=== PATIENT | female | born 1990 | race Caucasian/White ===

== ENCOUNTER 2017-02-04 23:09 | Emergency (ER) | payer SELFPAY ==
[2017-02-05] MEDS ORDERED: ASPIRIN 81 MG TABLET, CHEWABLE PO ONE (00:06)
[2017-02-05 00:55] LABS: HEMATOCRIT 42.9 % (36.0-47.0); HEMOGLOBIN 14.3 g/dL (12.0-15.5); MEAN CORPUSCULAR HEMOGLOBIN 30.6 pg (27.0-33.4); MEAN CORPUSCULAR HGB CONC 33.3 g/dL (32.0-36.0); MEAN CORPUSCULAR VOLUME 92 fl (80-97); RED BLOOD COUNT 4.67 10^6/uL (3.72-5.28); RED CELL DISTRIBUTION WIDTH 12.6 % (11.5-14.0); WHITE BLOOD COUNT 21.3 10^3/uL (4.0-10.5)
[2017-02-05 01:11] LABS: ALANINE AMINOTRANSFERASE 83 U/L (9-52); ALBUMIN 4.5 g/dL (3.5-5.0); ALKALINE PHOSPHATASE 93 U/L (38-126); ANION GAP 11 (5-19); ASPARTATE AMINO TRANSFERASE 171 U/L (14-36); BILIRUBIN,DIRECT 0.4 mg/dL (0.0-0.4); BILIRUBIN,TOTAL 0.6 mg/dL (0.2-1.3); BLOOD UREA NITROGEN 15 mg/dL (7-20); CARBON DIOXIDE 24 mmol/L (22-30); CHLORIDE 105 mmol/L (98-107); CREATINE KINASE 66 U/L (30-135); CREATININE RESULT 0.82 mg/dL (0.52-1.25); GLUCOSE 103 mg/dL (75-110); POTASSIUM 4.2 mmol/L (3.6-5.0); SODIUM 139.5 mmol/L (137-145); TOTAL PROTEIN 7.6 g/dL (6.3-8.2)
[2017-02-05 01:19] LABS: BAND NEUTROPHILS % (MANUAL) 3 % (3-5); BASOPHILS % (MANUAL) 0 % (0-2); EOSINOPHILS % (MANUAL) 0 % (0-6); LYMPHOCYTES % (MANUAL) 7 % (13-45); TOTAL CELLS COUNTED 100
[2017-02-05 01:20] LABS: RBC MORPHOLOGY COMMENT NORMO-CYTIC/CHROMIC; TOXIC GRANULATION 1+
[2017-02-05 01:21] LABS: CREATINE KINASE MB < 0.22 ng/mL (<4.55); TROPONIN I < 0.012 ng/mL
--- NOTE | 2017-02-05 01:22 | RADIOLOGY REPORT (SQ) ---
EXAM DESCRIPTION: CHEST PA/LAT COMPLETED DATE/TIME: 02/05/2017 12:55 am REASON FOR STUDY: chest pain COMPARISON: None. EXAM PARAMETERS: NUMBER OF VIEWS: two views TECHNIQUE: Digital Frontal and Lateral radiographic views of the chest acquired. RADIATION DOSE: NA LIMITATIONS: none FINDINGS: LUNGS AND PLEURA: No opacities, masses or pneumothorax. No pleural effusion. Moderate hyp erinflation. MEDIASTINUM AND HILAR STRUCTURES: No masses or contour abnormalities. HEART AND VASCULAR STRUCTURES: Heart normal size. No evidence for failure. BONES: No acute findings. HARDWARE: None in the chest. OTHER: No other significant finding. IMPRESSION: NO SIGNIFICANT RADIOGRAPHIC FINDING IN THE CHEST. TECHNICAL DOCUMENTATION: JOB ID: [id number] [employer]- All Rights Reserved
[2017-02-05] MEDS ORDERED: ONDANSETRON 4 MG TAB.RAPDIS PO ONE (02:30)
--- NOTE | 2017-02-05 02:32 | ER Document Report ---
ED General - General Chief Complaint: Chest Pain Stated Complaint: CHEST PRESSURE/VOMITING Time Seen by Provider: 02/05/17 02:22 Notes: Patient is a 26-year-old female that comes emergency department for chief complaint of vomiting and pain on both of her sides starting just below the ribs and radiating upwards. She states that she has vomited twice. She denies any current pain, she states that nausea comes in waves. LMP within the past 4 months. She denies cough, shortness of breath, sore throat, headache, abdominal pain, flank pain, chest pain. She denies any fevers or chills. She denies any dysuria, vaginal discharge or bleeding. She denies any daily medications, denies any surgeries. TRAVEL OUTSIDE OF THE [place] IN LAST 30 DAYS: No Past Medical History - General Information source: Patient - Social History Smoking Status: Never Smoker Frequency of alcohol use: Occasional Drug Abuse: None Lives with: Family Family History: Reviewed & Not Pertinent Patient has suicidal ideation: No Patient has homicidal ideation: No - Medical History Medical History: Negative Renal/ Medical History: Denies: Hx Peritoneal Dialysis Surgical Hx: Negative - Immunizations Immunizations up to date: Yes Hx Diphtheria, Pertussis, Tetanus Vaccination: Yes Review of Systems - Review of Systems Constitutional: No symptoms reported EENT: No symptoms reported Cardiovascular: No symptoms reported Respiratory: No symptoms reported Gastrointestinal: See HPI Genitourinary: No symptoms reported Female Genitourinary: No symptoms reported Musculoskeletal: No symptoms reported Skin: No symptoms reported Hematologic/Lymphatic: No symptoms reported Neurological/Psychological: No symptoms reported Physical Exam - Vital signs Vitals: Temp Pulse Resp BP Pulse Ox 96.5 F L 68 20 105/57 L 100 02/04/17 23:26 02/04/17 23:26 02/04/17 23:26 02/04/17 23:26 02/04/17 23:26 Interpretation: Normal - General General appearance: Appears well In distress: None - HEENT Head: Normocephalic, Atraumatic Eyes: Normal Conjunctiva: Normal Extraocular movements intact: Yes Eyelashes: Normal Pupils: PERRL Ears: Normal External canal: Normal Tympanic membrane: Normal Sinus: Normal Nasal: Normal Mouth/Lips: Normal Mucous membranes: Dry Pharynx: Normal Neck: Normal. No: Anterior cervical chain, Posterior cervical chain, Meningismus - Full neck range of motion with no rigidity - Respiratory Respiratory status: No respiratory distress. No: Labored, Tachypnea Chest status: Nontender Breath sounds: Normal. No: Decreased air movement, Wheezing Chest palpation: Normal - Cardiovascular Rhythm: Regular Heart sounds: Normal auscultation Murmur: No - Abdominal Inspection: Normal Distension: No distension Bowel sounds: Normal Tenderness: Nontender. No: Tender, Guarding - Completely benign abdomen, soft, no rigidity, no guarding Organomegaly: No organomegaly - Back Back: Normal. No: Tender, CVA tenderness - Extremities General upper extremity: Normal inspection, Nontender, Normal color, Normal ROM , Normal temperature General lower extremity: Normal inspection, Nontender, Normal color, Normal ROM , Normal temperature, Normal weight bearing. No: Geovanna's sign - Neurological Neuro grossly intact: Yes Cognition: Normal Orientation: AAOx4 Paige Coma Scale Eye Opening: Spontaneous Paige Coma Scale Verbal: Oriented Paige Coma Scale Motor: Obeys Commands [place] Coma Scale Total: 15 Speech: Normal Motor strength normal: LUE, RUE, LLE, RLE Sensory: Normal - Psychological Associated symptoms: Normal affect, Normal mood - Skin Skin Temperature: Warm Skin Moisture: Dry Skin Color: Normal Course - Re-evaluation Re-evalutation: Leukocytosis at 21,000 with elevation of neutrophils, no bandemia, slightly low temperature, no tachycardia, borderline blood pressure. Patient is very small in size. AST slightly elevated greater than ALT, nonspecific with completely nontender abdominal exam. Despite leukocytosis patient is actually extremely well-appearing, smiling, talkative, denying any pain, had no symptoms whatsoever after Zofran was given. I do not appreciate any CVA tenderness, clear lungs, normal throat, no nuchal rigidity, no headache complaint. Urinalysis showing positive nitrates, 3+ bacteria, white blood cells. Urine culture placed. Patient placed on Keflex, given Zofran. This does match with patient's "side pain" which she demonstrates to me as lateral abdominal pain towards the flank. Suspect this is from a urinary tract infection, there is no evidence of acute abdominal abnormality on examination, chest x-ray normal with normal lung auscultation. Patient does not have any chest pain. Patient states satisfaction with treatment, discussed close follow-up, discussed return precautions in detail, patient and state understanding and agreement. Patient asymptomatic at discharge - Vital Signs Vital signs: Temp Pulse Resp BP Pulse Ox 98.5 F 73 20 104/57 L 98 02/05/17 03:26 02/05/17 03:26 02/04/17 23:26 02/05/17 03:26 02/05/17 03:26 - Laboratory Result Diagrams: 02/05/17 00:38 02/05/17 00:38 Laboratory results interpreted by me: 02/05/17 02/05/17 02/05/17 00:38 00:38 02:45 WBC 21.3 H Seg Neuts % (Manual) 83 H Lymphocytes % (Manual) 7 L Abs Neuts (Manual) 18.3 H AST 171 H ALT 83 H Urine Nitrite POSITIVE H Urine Urobilinogen 4.0 H Ur Leukocyte Esterase TRACE H Discharge - Discharge Clinical Impression: Side pain Vomiting Qualifiers: Vomiting type: unspecified Vomiting Intractability: non-intractable Nausea presence: with nausea Qualified Code(s): R11.2 - Nausea with vomiting, unspecified Urinary tract infection Qualifiers: Urinary tract infection type: site unspecified Hematuria presence: without hematuria Qualified Code(s): N39.0 - Urinary tract infection, site not specified Condition: Stable Disposition: HOME, SELF-CARE Additional Instructions: Your workup indicates a urinary tract infection. Take the Keflex antibiotics as directed, we have a urine culture growing in our lab. Take the Zofran if needed for nausea. Your liver function tests were slightly elevated, these need to be routinely rechecked with primary care provider. Return to emergency department immediately if you worsen including uncontrolled vomiting, fever, developing pain in the abdomen or back, or any other concerning symptoms. Prescriptions: Cephalexin Monohydrate [Keflex 500 mg Capsule] 500 mg PO BID #14 capsule Ondansetron [Zofran Odt 4 mg Tablet] 1 - 2 tab PO Q4H PRN #20 tab.rapdis PRN Reason: For Nausea/Vomiting
[2017-02-05 03:06] LABS: APPEARANCE,URINE SLIGHTLY-CLOUDY; BILIRUBIN,URINE NEGATIVE (NEGATIVE); GLUCOSE, URINE NEGATIVE (NEGATIVE); KETONES,URINE NEGATIVE (NEGATIVE); LEUKOCYTE ESTERASE,URINE TRACE (NEGATIVE); NITRITE,URINE POSITIVE (NEGATIVE); PROTEIN,URINE NEGATIVE (NEGATIVE); URINE SPECIFIC GRAVITY 1.025
[2017-02-05] MEDS ORDERED: CEPHALEXIN 500 MG CAPSULE PO ONE (03:22)
[2017-02-05] MEDS ORDERED: ONDANSETRON ODT 4 MG TAB (6 TAB/DSPK) PO PRN (03:22)
[2017-02-05 03:28] VITALS: BP 104/57
--- NOTE | 2017-02-05 13:46 | EKG REPORT ---
SEVERITY:- NORMAL ECG - SINUS RHYTHM : Confirmed by: Deja Tiwari 05-Feb-2017 13:45:15
== END 2017-02-05 03:54 | disposition home or self-care (01) ==
LOC: ER 23:09
DX: N39.0 Urinary tract infection, site not specified (principal); R11.2 Nausea with vomiting, unspecified; D72.828 Other elevated white blood cell count
CPT/HCPCS: 93005; 99285; 36415; 87086; 82553; 82550; 85025; 87088; 80053; 81001; 84484; 87186; 71020; 93010; S0119

== ENCOUNTER 2017-02-21 16:52 | Emergency (ER) | payer SELFPAY ==
[2017-02-21 17:14] VITALS: BP 146/84
[2017-02-21] MEDS ORDERED: ONDANSETRON 4 MG TAB.RAPDIS PO ONE (19:02)
--- NOTE | 2017-02-21 19:08 | ER Document Report ---
HPI - HPI Pain Level: 0 Notes: Patient is a 26-year-old female presents the ED complaining of intermittent nausea 2 weeks along with intermittent rib pain and hip pain 2 weeks. Patient states that her hip pain was 2 weeks ago and felt like it was "expanding " without any precipitating events causing pain. The pain has since resolved in the hips. The same situation happened with her rib cage, as it felt like he was expanding on both sides and then went away. Currently patient is asymptomatic for those 2 pains. Patient states that she does have a little bit of nausea but it is not that bad. Her last menstrual period was in January and she states that she was due again around February 08, but was late and then had some spotting for a few days. Home urine last week was negative. She still eating and drinking without any problems. She denies any drug allergies, daily medications, or significant past medical history otherwise. Patient states she is a smoker but denies any illicit drug use. No recent travel, sick contacts, illness. Denies any fever, headache, URI, sore throat, dizziness, chest pain, palpitations, syncope, cough, wheeze, shortness of breath, dyspnea, abdominal pain, nausea/vomiting/diarrhea, dysuria, hematuria, urinary frequency , other joint pains, muscle paralysis/weakness, numbness/tingling, saddle anesthesia, loss of control bowel or bladder, or rash. - ROS Notes: REVIEW OF SYSTEMS: CONSTITUTIONAL : Denies fever, chills, or sweats. Denies recent illness. EENT: Denies eye, ear, throat, or mouth pain or symptoms. Denies nasal or sinus congestion or discharge. Denies throat, tongue, or mouth swelling or difficulty swallowing. CARDIOVASCULAR: Denies chest pain. Denies palpitations or racing or irregular heart beat. Denies ankle edema. RESPIRATORY: Denies cough, cold, or chest congestion. Denies shortness of breath, difficulty breathing, or wheezing. GASTROINTESTINAL: Denies abdominal pain or distention. Denies nausea, vomiting , or diarrhea. Denies blood in vomitus, stools, or per rectum. Denies black, tarry stools. Denies constipation. GENITOURINARY: Denies difficulty urinating, painful urination, burning, frequency, blood in urine, or discharge. FEMALE GENITOURINARY: Denies vaginal bleeding, heavy or abnormal periods, irregular periods. Denies vaginal discharge or odor. MUSCULOSKELETAL: see hpi. No current complaints of pain. SKIN: Denies rash, lesions or sores. NEUROLOGICAL: Denies confusion or altered mental status. Denies passing out or loss of consciousness. Denies dizziness or lightheadedness. Denies headache. Denies weakness or paralysis or loss of use of either side. Denies problems with gait or speech. Denies sensory loss, numbness, or tingling. Denies seizures. PSYCHIATRIC: Denies anxiety or stress. Denies depression, suicidal ideation, or homicidal ideation. ALL OTHER SYSTEMS REVIEWED AND NEGATIVE. Dictation was performed using [employer] recognition software Past Medical History - Social History Smoking Status: Current Every Day Smoker Family History: Reviewed & Not Pertinent Patient has suicidal ideation: No Patient has homicidal ideation: No Renal/ Medical History: Denies: Hx Peritoneal Dialysis - Immunizations Immunizations up to date: Yes Hx Diphtheria, Pertussis, Tetanus Vaccination: Yes Vertical Provider Document - CONSTITUTIONAL Agree With Documented VS: Yes Notes: PHYSICAL EXAMINATION: GENERAL: Well-appearing, well-nourished and in no acute distress. HEAD: Atraumatic, normocephalic. EYES: Pupils equal round and reactive to light, extraocular movements intact, sclera anicteric, conjunctiva are normal. ENT: EAC clear b/l. TM's intact b/l without erythema, fluid, or perforation. Nares patent and without discharge. oropharynx clear without exudates. No tonsilar hypertrophy or erythema. Moist mucous membranes. No sinus tenderness. NECK: Normal range of motion, supple without lymphadenopathy. No rigidity/ meningismus. Chest: Equal rise and fall. No deformity or flail chest. Nontender to entire rib cage to compression or palpation. LUNGS: Breath sounds clear to auscultation bilaterally and equal. No wheezes rales or rhonchi. HEART: Regular rate and rhythm without murmurs, rubs, gallops. ABDOMEN: Soft, nontender, nondistended abdomen. No guarding, no rebound. No masses appreciated. Normal bowel sounds present. No CVA tenderness bilaterally. Musculoskeletal: Extremities B/L: FROM to passive/active. Strength 5+/5. Back: FROM to passive/active. Strength is 5+ out of 5. No vertebral point tenderness. No SI jt tenderness Hips: Full range of motion to passive and active without any deficits. No tenderness or pain elicited during exam. Alvin test negative. + Mild tenderness to the troch bursa bilaterally. Extremities: No cyanosis, clubbing, or edema b/l. Peripheral pulses 2+. Capillary refill less than 3 seconds. NEUROLOGICAL: Cranial nerves grossly intact. Normal speech, normal gait. Normal sensory, motor exams. reflexes 2+ b/l. PSYCH: Normal mood, normal affect. SKIN: Warm, Dry, normal turgor, no rashes or lesions noted. - INFECTION CONTROL TRAVEL OUTSIDE OF THE [place] IN LAST 30 DAYS: No - RESPIRATORY O2 Sat by Pulse Oximetry: 100 Course - Re-evaluation Re-evalutation: 02/21/17 20:40 Patient is an afebrile, well-hydrated, 26-year-old female presents the ED with nonspecific symptoms of nausea, rib pain, hip pain. Vitals are stable. I did find mild troch burisits b/l, but PE otherwise unremarkable for any focal neurological deficits or exam findings consistent with subjective complaint. Patient is currently asymptomatic otherwise aside from mild nausea. Zofran 4 mg given p.o. urinalysis and urine hCG were negative. Reviewed with patient that I was unable to localize any specific finding to help give her a diagnosis. Neurologically the patient is intact. Low suspicion for any systemic illness, sepsis, meningitis, acute abdomen, PE, ACS, pericarditis, pneumothorax, dissecting aneurysm, cauda equina syndrome, epidural mass lesion/ abscess, disc herniation causing severe spinal stenosis, or any other acute fracture. Conservative measures for any development of symptoms. Recheck/ establish with a PCM/health department this week for further evaluation. Return to the ED with any worsening/concerning symptoms otherwise as reviewed in discharge. Patient is in agreement. - Vital Signs Vital signs: Temp Pulse Resp BP Pulse Ox 98.3 F 70 14 146/84 H 100 02/21/17 17:11 02/21/17 17:11 02/21/17 17:11 02/21/17 17:11 02/21/17 17:11 Discharge - Discharge Clinical Impression: Nausea Condition: Stable Disposition: HOME, SELF-CARE Additional Instructions: Push fluids (i.e. water, cranberry juice) Proper hygenic technique Keep the skin clean Tylenol/ibuprofen as needed Antihistamines for any nausea Take medications as directed F/u/establish with a PCM in 2-3 days for a recheck Return to the ED with any worsening symptoms and/or development of fever, headache, chest pain, palpitations, syncope, shortness of breath, trouble breathing, abdominal pain, n/v/d, blood in stool/urine, loss of control of bowel /bladder, urinary retention, muscle weakness/paralysis, numbness/tingling, or other worsening symptoms that are concerning to you. Forms: Smoking Cessation Education, Elevated Blood Pressure Referrals: [facility] [Provider Group] - Follow up as needed [facility] [Provider Group] - [facility] as [facility] [NO [facility]AL [facility]] - Follow up as needed
[2017-02-21 19:24] LABS: APPEARANCE,URINE CLEAR; BILIRUBIN,URINE NEGATIVE (NEGATIVE); GLUCOSE, URINE NEGATIVE (NEGATIVE); KETONES,URINE NEGATIVE (NEGATIVE); LEUKOCYTE ESTERASE,URINE NEGATIVE (NEGATIVE); NITRITE,URINE POSITIVE (NEGATIVE); PROTEIN,URINE NEGATIVE (NEGATIVE); URINE SPECIFIC GRAVITY 1.003; UROBILINOGEN,URINE NEGATIVE mg/dL (<2.0)
== END 2017-02-21 21:25 | disposition home or self-care (01) ==
LOC: ER 16:52
DX: R11.0 Nausea (principal); R07.81 Pleurodynia; M25.552 Pain in left hip; M25.551 Pain in right hip; F17.200 Nicotine dependence, unspecified, uncomplicated
CPT/HCPCS: 99283; 87086; 81025; 87088; 81001; 87186; S0119